=== PATIENT | female | born 1985 | race Caucasian/White ===

== ENCOUNTER 2020-06-11 17:01 | Inpatient (IN) | payer MEDICAID ==
[~2020-06-11] VITALS: Ht 162.6 cm; Wt 94.1 kg
[2020-06-11 19:00] LABS: COVID AG,FIA SOURCE NASOPHARYNGEAL
[2020-06-11 19:07] LABS: BASOPHILS % (AUTO) 0.2 % (0.0-2.0); EOSINOPHILS % (AUTO) 0 % (1.0-6.0); HEMATOCRIT 36.1 % (36-46); HEMOGLOBIN 12.1 g/dL (12.0-16.0); LYMPHOCYTES # (AUTO) 0.9 K/uL (1.0-4.8); LYMPHOCYTES % (AUTO) 7.2 % (22.0-44.0); MEAN CORPUSCULAR HEMOGLOBIN 29.3 pg (26.0-34.0); MEAN CORPUSCULAR HGB CONC 33.4 G/dL (31.0-37.0); MEAN CORPUSCULAR VOLUME 88 fL (80-100); MONOCYTES # (AUTO) 0.9 K/uL (0.1-1.0); NEUTROPHILS # (AUTO) 10.7 K/uL (1.8-7.7); PLATELET COUNT (AUTO) 223 K/uL (150-450); RED BLOOD CELL COUNT(AUTO) 4.11 MIL/uL (4.00-5.20); RED CELL DISTRIBUTION WIDTH 13.4 % (11.5-14.5)
[2020-06-11 19:12] LABS: NEUTROPHILS % (AUTO) 85.6 % (40.0-70.0)
[2020-06-11 19:28] LABS: ALANINE AMINOTRANSFERASE 82 U/L (12-78); ALBUMIN 3.7 g/dL (3.4-5.0); ALKALINE PHOSPHATASE 49 U/L (46-116); ANION GAP 11 mmol/L (8-16); ASPARTATE AMINOTRANSFERASE 113 U/L (15-37); CALCIUM, TOTAL 8.8 mg/dL (8.8-10.5); CARBON DIOXIDE 25 mmol/L (22-29); CHLORIDE 108 mmol/L (98-107); CREATININE 0.97 mg/dL (0.60-1.30); GLOMERULAR FILTR. RATE CALC > 60 mL/min (>60); GLUCOSE,RANDOM 107 mg/dL (70-110); POTASSIUM 3.3 mmol/L (3.5-5.1); SODIUM SERUM 144 mmol/L (136-145); TOTAL PROTEIN, SERUM 7.1 g/dL (6.4-8.2)
[2020-06-11 19:38] LABS: UREA NITROGEN, BLOOD 18 mg/dL (7-18)
[2020-06-11] MEDS ORDERED: LORazepam 2 MG/ML VIAL IM ONE (22:00)
[2020-06-11] MEDS ORDERED: HALOPERIDOL LACTATE 5 MG/ML VIAL IM ONE (22:00)
[2020-06-11] MEDS ORDERED: DiphenhydrAMINE HCL 50 MG/ML VIAL IM ONE (22:00)
[2020-06-12 00:35] VITALS: BP 137/88
[2020-06-12 08:09] VITALS: BP 119/68
[2020-06-12] MEDS ORDERED: DOCUSATE SODIUM 100 MG CAPSULE PO PRN (08:30)
[2020-06-12] MEDS ORDERED: OMEPRAZOLE 20 MG CAPSULE PO PRN (08:30)
[2020-06-12] MEDS ORDERED: BENZOCAINE/MENTHOL LOZENGE PO PRN (08:30)
[2020-06-12] MEDS ORDERED: LOPERAMIDE HCL 2 MG CAPSULE PO PRN (08:30)
[2020-06-12] MEDS ORDERED: ONDANSETRON HCL 4 MG TABLET PO PRN (08:30)
[2020-06-12] MEDS ORDERED: ACETAMINOPHEN 325 MG TABLET PO PRN (08:30)
[2020-06-12] MEDS ORDERED: PETROLATUM,WHITE 28 GM JELLY TP PRN (08:30)
[2020-06-12] MEDS ORDERED: MAG HYDROX/AL HYDROX/SIMETH ES 30 ML SUSPENSION UDCUP PO PRN (08:30)
[2020-06-12] MEDS ORDERED: IBUPROFEN 600 MG TABLET PO PRN (08:30)
[2020-06-12] MEDS ORDERED: MAGNESIUM HYDROXIDE SUSPENSION 30 ML UDCUP PO PRN (08:30)
[2020-06-12] MEDS ORDERED: CloNIDine HCL 0.1 MG TABLET PO PRN (08:30)
[2020-06-12] MEDS ORDERED: ALBUTEROL SULFATE HFA 90 MCG/PUFF 8 GM INHALER IH PRN (08:30)
[2020-06-12] MEDS ORDERED: BACITRACIN 28 GM OINTMENT TP PRN (08:30)
[2020-06-12] MEDS ORDERED: POTASSIUM CHLORIDE 20 MEQ ER TABLET PO ONE ×2 (08:30)
[2020-06-12 17:19] VITALS: BP 129/70
[2020-06-12] MEDS ORDERED: POTASSIUM CHLORIDE 10% 40 MEQ/30 ML LIQUID UDCUP PO ONE (18:15)
[2020-06-13] MEDS: ZOLPIDEM TARTRATE 10 MG TABLET PO PRN ×2 (00:46→20:21)
[2020-06-13] MEDS: LORazepam 2 MG TABLET PO PRN ×2 (00:46→19:06)
[2020-06-13] MEDS: OLANZapine 5 MG RAPDIS TABLET PO PRN ×2 (00:46→19:06)
[2020-06-13 03:49] VITALS: BP 120/76
[2020-06-13 08:01] LABS: BASOPHILS % (AUTO) 0.5 % (0.0-2.0); EOSINOPHILS % (AUTO) 1.2 % (1.0-6.0); HEMATOCRIT 38.6 % (36-46); HEMOGLOBIN 13.2 g/dL (12.0-16.0); LYMPHOCYTES % (AUTO) 39.5 % (22.0-44.0); MEAN CORPUSCULAR HEMOGLOBIN 30.3 pg (26.0-34.0); MEAN CORPUSCULAR HGB CONC 34.1 G/dL (31.0-37.0); MEAN CORPUSCULAR VOLUME 89 fL (80-100); MONOCYTES # (AUTO) 0.6 K/uL (0.1-1.0); MONOCYTES % (AUTO) 8.3 % (2.0-9.0); NEUTROPHILS # (AUTO) 3.9 K/uL (1.8-7.7); NEUTROPHILS % (AUTO) 50.5 % (40.0-70.0); PLATELET COUNT (AUTO) 239 K/uL (150-450); RED BLOOD CELL COUNT(AUTO) 4.35 MIL/uL (4.00-5.20); RED CELL DISTRIBUTION WIDTH 13.7 % (11.5-14.5)
[2020-06-13 08:14] LABS: ALANINE AMINOTRANSFERASE 71 U/L (12-78); ALBUMIN 3.5 g/dL (3.4-5.0); ALKALINE PHOSPHATASE 52 U/L (46-116); ANION GAP 12 mmol/L (8-16); ASPARTATE AMINOTRANSFERASE 80 U/L (15-37); BILIRUBIN,TOTAL 0.6 mg/dL (0.1-1.0); CALCIUM, TOTAL 9.3 mg/dL (8.8-10.5); CARBON DIOXIDE 27 mmol/L (22-29); CHLORIDE 109 mmol/L (98-107); CHOL/HDL RATIO 3.7 (3.9-5.7); CHOLESTEROL 174 mg/dL (131-200); CREATININE 0.61 mg/dL (0.60-1.30); GLOMERULAR FILTR. RATE CALC > 60 mL/min (>60); GLUCOSE,RANDOM 86 mg/dL (70-110); HDL CHOLESTEROL 47 mg/dL (40-60); LDL CHOL (CALC.) 113 mg/dL (0-130); PHOSPHORUS 4.6 mg/dL (2.5-4.9); POTASSIUM 3.6 mmol/L (3.5-5.1); SODIUM SERUM 148 mmol/L (136-145); TOTAL PROTEIN, SERUM 7.4 g/dL (6.4-8.2); TRIGLYCERIDES 69 mg/dL (15-150); UREA NITROGEN, BLOOD 19 mg/dL (7-18)
[2020-06-13] MEDS ORDERED: POTASSIUM CHLORIDE 20 MEQ ER TABLET PO ONE (08:15)
[2020-06-13 08:17] VITALS: BP 102/63
[2020-06-13] MEDS: CEPHALEXIN MONOHYDRATE 500 MG CAPSULE PO SCH ×4 (08:30→20:21)
[2020-06-13] MEDS: TERBINAFINE HCL 1% 30 GM CREAM TP SCH ×2 (08:31→16:41)
[2020-06-13] MEDS: MAGNESIUM SULFATE 454 GM BOX TP SCH ×2 (08:41→10:00)
[2020-06-13] MEDS ORDERED: MAGNESIUM SULFATE 454 GM BOX TP SCH (09:00)
[2020-06-13 16:10] VITALS: BP 118/66
[2020-06-13] MEDS: OLANZapine 10 MG TABLET PO SCH (20:20)
[2020-06-14 00:08] VITALS: BP 114/75
[2020-06-14] MEDS: CEPHALEXIN MONOHYDRATE 500 MG CAPSULE PO SCH ×4 (08:01→21:00)
[2020-06-14 08:05] VITALS: BP 141/96
[2020-06-14] MEDS: TERBINAFINE HCL 1% 30 GM CREAM TP SCH ×2 (09:00→16:03)
[2020-06-14] MEDS: MAGNESIUM SULFATE 454 GM BOX TP SCH (10:00)
[2020-06-14] MEDS: LORazepam 2 MG TABLET PO PRN (15:27)
[2020-06-14 16:15] VITALS: BP 146/94
[2020-06-14] MEDS: OLANZapine 10 MG TABLET PO SCH (21:00)
[2020-06-15 00:26] VITALS: BP_SYST 128; BP_SYST 88; BP_DIAS 18; BP_DIAS 78
[2020-06-15] MEDS: CEPHALEXIN MONOHYDRATE 500 MG CAPSULE PO SCH ×4 (08:25→20:35)
[2020-06-15 08:39] VITALS: BP 132/78
[2020-06-15] MEDS: MAGNESIUM SULFATE 454 GM BOX TP SCH (11:28)
[2020-06-15] MEDS: TERBINAFINE HCL 1% 30 GM CREAM TP SCH ×2 (11:28→16:16)
[2020-06-15] MEDS: OLANZapine 5 MG RAPDIS TABLET PO PRN (17:54)
[2020-06-15 19:24] VITALS: BP 140/76
[2020-06-15] MEDS: OLANZapine 10 MG TABLET PO SCH (20:35)
[2020-06-16] MEDS: ZOLPIDEM TARTRATE 10 MG TABLET PO PRN ×2 (01:41→22:42)
[2020-06-16 01:46] VITALS: BP 121/70
[2020-06-16 08:05] VITALS: BP 121/69
[2020-06-16] MEDS: MAGNESIUM SULFATE 454 GM BOX TP SCH (08:53)
[2020-06-16] MEDS: TERBINAFINE HCL 1% 30 GM CREAM TP SCH ×2 (08:53→15:51)
[2020-06-16] MEDS: CEPHALEXIN MONOHYDRATE 500 MG CAPSULE PO SCH ×4 (08:54→21:05)
[2020-06-16 16:06] VITALS: BP 122/84
[2020-06-16] MEDS: OLANZapine 5 MG RAPDIS TABLET PO PRN (18:04)
[2020-06-16] MEDS: LORazepam 2 MG TABLET PO PRN (18:04)
[2020-06-16] MEDS: OLANZapine 10 MG TABLET PO SCH (21:05)
[2020-06-17 00:34] VITALS: BP 117/82
[2020-06-17] MEDS: LORazepam 2 MG TABLET PO PRN (00:47)
[2020-06-17] MEDS: OLANZapine 5 MG RAPDIS TABLET PO PRN (00:48)
[2020-06-17 08:16] VITALS: BP 122/86
[2020-06-17 08:17] LABS: BAND NEUTROPHILS % (MANUAL) 0 % (0-5)
[2020-06-17] MEDS: TERBINAFINE HCL 1% 30 GM CREAM TP SCH ×2 (08:19→16:30)
[2020-06-17] MEDS: CEPHALEXIN MONOHYDRATE 500 MG CAPSULE PO SCH ×4 (08:19→20:19)
[2020-06-17 08:31] LABS: HEMATOCRIT 40.3 % (36-46); HEMOGLOBIN 13.3 g/dL (12.0-16.0); MEAN CORPUSCULAR HEMOGLOBIN 29.6 pg (26.0-34.0); MEAN CORPUSCULAR HGB CONC 32.9 G/dL (31.0-37.0); MEAN CORPUSCULAR VOLUME 90 fL (80-100); PLATELET COUNT (AUTO) 244 K/uL (150-450); RED BLOOD CELL COUNT(AUTO) 4.48 MIL/uL (4.00-5.20); RED CELL DISTRIBUTION WIDTH 13.6 % (11.5-14.5)
[2020-06-17 08:45] LABS: ANION GAP 11 mmol/L (8-16); CARBON DIOXIDE 26 mmol/L (22-29); CHLORIDE 106 mmol/L (98-107); CREATININE 0.68 mg/dL (0.60-1.30); GLUCOSE,RANDOM 86 mg/dL (70-110); SODIUM SERUM 143 mmol/L (136-145); UREA NITROGEN, BLOOD 11 mg/dL (7-18)
[2020-06-17 08:46] LABS: CALCIUM, TOTAL 9.1 mg/dL (8.8-10.5); GLOMERULAR FILTR. RATE CALC > 60 mL/min (>60); PHOSPHORUS 3.8 mg/dL (2.5-4.9)
[2020-06-17] MEDS: MAGNESIUM SULFATE 454 GM BOX TP SCH (09:03)
[2020-06-17 12:21] LABS: EOSINOPHILS % (MANUAL) 2 % (1-6); LYMPHOCYTES % (MANUAL) 40 % (22-44); MONOCYTES % (MANUAL) 8 % (2-9); REACTIVE LYMPHOCYTES 3 % (0-0); SEGMENTED NEUTROPHILS % 47 % (40-70)
[2020-06-17 16:24] VITALS: BP 148/86
[2020-06-17] MEDS: OLANZapine 10 MG TABLET PO SCH (20:19)
[2020-06-18 00:37] VITALS: BP 128/79
[2020-06-18] MEDS: ZOLPIDEM TARTRATE 10 MG TABLET PO PRN ×2 (01:48→20:34)
[2020-06-18] MEDS: LORazepam 2 MG TABLET PO PRN ×2 (01:48→16:43)
[2020-06-18 08:19] VITALS: BP 153/91
[2020-06-18] MEDS: CEPHALEXIN MONOHYDRATE 500 MG CAPSULE PO SCH ×4 (08:28→20:10)
[2020-06-18] MEDS: TERBINAFINE HCL 1% 30 GM CREAM TP SCH ×2 (08:28→16:44)
[2020-06-18] MEDS: MAGNESIUM SULFATE 454 GM BOX TP SCH (10:00)
[2020-06-18 16:06] VITALS: BP 130/79
[2020-06-18] MEDS: OLANZapine 5 MG RAPDIS TABLET PO PRN (16:43)
[2020-06-18] MEDS: OLANZapine 10 MG TABLET PO SCH (20:10)
[2020-06-19 00:45] VITALS: BP 110/77
[2020-06-19 08:04] VITALS: BP 134/89
[2020-06-19] MEDS: TERBINAFINE HCL 1% 30 GM CREAM TP SCH ×2 (08:41→16:43)
[2020-06-19] MEDS: CEPHALEXIN MONOHYDRATE 500 MG CAPSULE PO SCH ×4 (08:43→20:19)
[2020-06-19] MEDS: MAGNESIUM SULFATE 454 GM BOX TP SCH (09:56)
[2020-06-19] MEDS: MULTIVITAMINS, THERAPEUTIC TABLET PO SCH (10:01)
[2020-06-19 16:04] VITALS: BP 133/62
[2020-06-19] MEDS: LORazepam 2 MG TABLET PO PRN (19:02)
[2020-06-19] MEDS: OLANZapine 7.5 MG TABLET PO SCH (20:19)
[2020-06-19] MEDS: ZOLPIDEM TARTRATE 10 MG TABLET PO PRN (23:50)
[2020-06-19 23:53] VITALS: BP 128/80
[2020-06-20 08:03] VITALS: BP 129/89
[2020-06-20] MEDS: LORazepam 2 MG TABLET PO PRN (08:12)
[2020-06-20] MEDS: MULTIVITAMINS, THERAPEUTIC TABLET PO SCH (08:12)
[2020-06-20] MEDS: TERBINAFINE HCL 1% 30 GM CREAM TP SCH ×2 (08:21→16:37)
[2020-06-20] MEDS: MAGNESIUM SULFATE 454 GM BOX TP SCH (10:00)
[2020-06-20 17:34] VITALS: BP 140/95
[2020-06-20] MEDS: OLANZapine 7.5 MG TABLET PO SCH (20:21)
[2020-06-20] MEDS: ZOLPIDEM TARTRATE 10 MG TABLET PO PRN (22:37)
[2020-06-21 00:40] VITALS: BP 126/74
[2020-06-21 08:02] VITALS: BP 114/68
[2020-06-21] MEDS: MULTIVITAMINS, THERAPEUTIC TABLET PO SCH (08:53)
[2020-06-21] MEDS: TERBINAFINE HCL 1% 30 GM CREAM TP SCH (09:54)
[2020-06-21] MEDS: MAGNESIUM SULFATE 454 GM BOX TP SCH (10:00)
[2020-06-21] MEDS ORDERED: OLAN7.5T2 PO (15:40)
== END 2020-06-21 16:30 | disposition home or self-care (01) | DRG 750 ==
LOC: EMS 17:02 → B3A 20:37
PROVIDERS: ADMIT Psychiatry & Neurology Psychiatry; ATTEND Psychiatry & Neurology Psychiatry
DX: F25.9 Schizoaffective disorder, unspecified (principal); F31.9 Bipolar disorder, unspecified; Z20.828 Contact with and (suspected) exposure to other viral communicable diseases; F41.9 Anxiety disorder, unspecified; E87.6 Hypokalemia; G47.00 Insomnia, unspecified; K59.00 Constipation, unspecified; F19.10 Other psychoactive substance abuse, uncomplicated; Z72.0 Tobacco use; Z88.2 Allergy status to sulfonamides; Z88.8 Allergy status to other drugs, medicaments and biological substances
CPT/HCPCS: 80074; 83735; 84100; 85007; 87426; G0480; J1200; J1630; J2060

== ENCOUNTER 2020-06-23 13:55 | Inpatient (IN) | payer MEDICAID ==
[~2020-06-23] VITALS: Ht 162.6 cm; Wt 95.4 kg
[~2020-06-23 13:55] MED LIST: OLAN7.5T2 PO
[2020-06-23 16:52] LABS: BASOPHILS % (AUTO) 0.3 % (0.0-2.0); EOSINOPHILS % (AUTO) 0 % (1.0-6.0); HEMATOCRIT 41.5 % (36-46); HEMOGLOBIN 14.2 g/dL (12.0-16.0); LYMPHOCYTES # (AUTO) 2.4 K/uL (1.0-4.8); LYMPHOCYTES % (AUTO) 19.6 % (22.0-44.0); MEAN CORPUSCULAR HEMOGLOBIN 29.7 pg (26.0-34.0); MEAN CORPUSCULAR HGB CONC 34.2 G/dL (31.0-37.0); MEAN CORPUSCULAR VOLUME 87 fL (80-100); MONOCYTES # (AUTO) 0.8 K/uL (0.1-1.0); MONOCYTES % (AUTO) 6.7 % (2.0-9.0); NEUTROPHILS # (AUTO) 8.9 K/uL (1.8-7.7); NEUTROPHILS % (AUTO) 73.4 % (40.0-70.0); PLATELET COUNT (AUTO) 279 K/uL (150-450); RED BLOOD CELL COUNT(AUTO) 4.78 MIL/uL (4.00-5.20); RED CELL DISTRIBUTION WIDTH 13.4 % (11.5-14.5)
[2020-06-23 17:04] LABS: COVID AG,FIA SOURCE NASOPHARYNGEAL
[2020-06-23 17:06] LABS: ANION GAP 14 mmol/L (8-16); CALCIUM, TOTAL 9.4 mg/dL (8.8-10.5); CARBON DIOXIDE 24 mmol/L (22-29); CHLORIDE 101 mmol/L (98-107); CREATININE 0.76 mg/dL (0.60-1.30); GLOMERULAR FILTR. RATE CALC > 60 mL/min (>60); GLUCOSE,RANDOM 98 mg/dL (70-110); POTASSIUM 3.3 mmol/L (3.5-5.1); SODIUM SERUM 139 mmol/L (136-145); UREA NITROGEN, BLOOD 15 mg/dL (7-18)
[2020-06-23 17:10] LABS: ALANINE AMINOTRANSFERASE 67 U/L (12-78); ALBUMIN 4.3 g/dL (3.4-5.0); ALKALINE PHOSPHATASE 54 U/L (46-116); ASPARTATE AMINOTRANSFERASE 72 U/L (15-37); BILIRUBIN,TOTAL 0.9 mg/dL (0.1-1.0); TOTAL PROTEIN, SERUM 8.1 g/dL (6.4-8.2)
[2020-06-23 17:32] LABS: APPEARANCE,URINE CLEAR (CLEAR); GLUCOSE, URINE (UA) NEGATIVE (NEGATIVE); KETONES,URINE 40 mg/dL (NEGATIVE); LEUKOCYTE ESTERASE ,URINE NEGATIVE (NEGATIVE); NITRATE,URINE NEGATIVE (NEGATIVE); OCCULT BLOOD,URINE NEGATIVE (NEGATIVE); PROTEIN,URINE POS 1+ (NEGATIVE); UROBILINOGEN,URINE 0.2 mg/dL (<=1.0)
[2020-06-23 17:36] LABS: AMPHET/METH SCREEN,URINE NEGATIVE (NEGATIVE); BARBITURATE SCREEN, URINE NEGATIVE (NEGATIVE); BENZODIAZEPINES SCREEN,URINE NEGATIVE (NEGATIVE); CANNABINOID SCREEN,URINE NEGATIVE (NEGATIVE); COCAINE SCREEN,URINE NEGATIVE (NEGATIVE); METHADONE SCREEN, URINE NEGATIVE (NEGATIVE); OPIATE SCREEN,URINE NEGATIVE (NEGATIVE)
[2020-06-23 17:44] LABS: PHENCYCLIDINE SCREEN,URINE NEGATIVE (NEGATIVE)
[2020-06-23 17:45] LABS: BILIRUBIN,URINE PRELIM. POSITIVE (NEGATIVE)
[2020-06-23 18:02] LABS: BACTERIA,URINE Few /HPF (None Seen); RBC,URINE 0-2 /HPF (0-2); SQUAMOUS EPITHELIAL CELL,UR Rare /LPF (None Seen); WBC,URINE 0-2 /HPF (0-5)
[2020-06-23] MEDS ORDERED: POTASSIUM CHLORIDE 20 MEQ ER TABLET PO ONE (18:45)
[2020-06-23] MEDS ORDERED: HALOPERIDOL 5 MG TABLET PO ONE (19:00)
[2020-06-23] MEDS ORDERED: DiphenhydrAMINE HCL 50 MG CAPSULE PO ONE (19:00)
[2020-06-23 19:23] LABS: HCG,QUANTITATIVE 1 mIU/mL (0-6)
[2020-06-23] MEDS ORDERED: ZOLPIDEM TARTRATE 10 MG TABLET PO PRN (20:15)
[2020-06-23] MEDS ORDERED: HALOPERIDOL 5 MG TABLET PO PRN (20:15)
[2020-06-24 05:43] LABS: CHOL/HDL RATIO 3.3 (3.9-5.7); CHOLESTEROL 203 mg/dL (131-200); HDL CHOLESTEROL 61 mg/dL (40-60); LDL CHOL (CALC.) 130 mg/dL (0-130); TRIGLYCERIDES 58 mg/dL (15-150)
[2020-06-24] MEDS: LORazepam 2 MG TABLET PO PRN ×2 (08:48→21:54)
[2020-06-24 15:11] VITALS: BP 147/64
[2020-06-24 15:41] VITALS: BP 147/64
[2020-06-24 16:55] VITALS: BP 147/64
[2020-06-24] MEDS: POTASSIUM CHLORIDE 20 MEQ ER TABLET PO ONE ×2 (17:00→17:23)
[2020-06-24 17:04] VITALS: BP 147/64
[2020-06-25] MEDS ORDERED: CloNIDine HCL 0.1 MG TABLET PO PRN (07:30)
[2020-06-25] MEDS ORDERED: MAG HYDROX/AL HYDROX/SIMETH ES 30 ML SUSPENSION UDCUP PO PRN (07:30)
[2020-06-25] MEDS ORDERED: LOPERAMIDE HCL 2 MG CAPSULE PO PRN (07:30)
[2020-06-25] MEDS ORDERED: DOCUSATE SODIUM 100 MG CAPSULE PO PRN (07:30)
[2020-06-25] MEDS ORDERED: ACETAMINOPHEN 325 MG TABLET PO PRN (07:30)
[2020-06-25] MEDS ORDERED: ALBUTEROL SULFATE HFA 90 MCG/PUFF 8 GM INHALER IH PRN (07:30)
[2020-06-25] MEDS ORDERED: IBUPROFEN 600 MG TABLET PO PRN (07:30)
[2020-06-25] MEDS ORDERED: BENZOCAINE/MENTHOL LOZENGE PO PRN (07:30)
[2020-06-25] MEDS ORDERED: BACITRACIN 28 GM OINTMENT TP PRN (07:30)
[2020-06-25] MEDS ORDERED: ONDANSETRON HCL 4 MG TABLET PO PRN (07:30)
[2020-06-25] MEDS ORDERED: PETROLATUM,WHITE 28 GM JELLY TP PRN (07:30)
[2020-06-25] MEDS ORDERED: MAGNESIUM HYDROXIDE SUSPENSION 30 ML UDCUP PO PRN (07:30)
[2020-06-25] MEDS ORDERED: OMEPRAZOLE 20 MG CAPSULE PO PRN (07:30)
[2020-06-25 08:00] VITALS: BP 113/17
[2020-06-25 16:19] VITALS: BP 111/67
[2020-06-26 02:11] VITALS: BP 152/70
[2020-06-26 06:55] LABS: POTASSIUM 3.6 mmol/L (3.5-5.1); THYROID STIMULATING HORMONE 1.55 uIU/mL (0.36-3.74)
[2020-06-26 08:49] VITALS: BP 130/71
[2020-06-26] MEDS: BusPIRone HCL 10 MG TABLET PO SCH ×2 (09:23→16:05)
[2020-06-26] MEDS: QUEtiapine FUMARATE 200 MG TABLET PO SCH ×2 (09:23→16:05)
[2020-06-26 16:58] VITALS: BP 135/94
[2020-06-26] MEDS: LORazepam 2 MG TABLET PO PRN (22:03)
[2020-06-27 09:00] VITALS: BP 124/56
[2020-06-27] MEDS: MUPIROCIN CALCIUM 2% 22 GM OINTMENT NASAL SCH ×2 (09:00→16:22)
[2020-06-27] MEDS: QUEtiapine FUMARATE 200 MG TABLET PO SCH ×2 (10:40→16:22)
[2020-06-27] MEDS: BusPIRone HCL 10 MG TABLET PO SCH ×2 (10:40→16:22)
[2020-06-27 17:34] VITALS: BP 114/85
[2020-06-28 01:09] VITALS: BP 127/68
[2020-06-28] MEDS: QUEtiapine FUMARATE 200 MG TABLET PO SCH ×2 (09:07→16:15)
[2020-06-28] MEDS: BusPIRone HCL 10 MG TABLET PO SCH ×2 (09:07→16:15)
[2020-06-28] MEDS: MUPIROCIN CALCIUM 2% 22 GM OINTMENT NASAL SCH ×2 (09:08→16:15)
[2020-06-28 09:33] VITALS: BP 119/65
[2020-06-28 17:13] VITALS: BP 138/80
[2020-06-29 00:21] VITALS: BP 121/74
[2020-06-29 08:31] VITALS: BP 121/81
[2020-06-29] MEDS: QUEtiapine FUMARATE 200 MG TABLET PO SCH ×2 (08:57→16:13)
[2020-06-29] MEDS: BusPIRone HCL 10 MG TABLET PO SCH ×2 (08:57→16:13)
[2020-06-29] MEDS: MUPIROCIN CALCIUM 2% 22 GM OINTMENT NASAL SCH ×2 (08:57→16:13)
[2020-06-29 16:54] VITALS: BP 122/68
[2020-06-30 04:00] VITALS: BP 147/87
[2020-06-30] MEDS: BusPIRone HCL 10 MG TABLET PO SCH ×2 (08:39→16:38)
[2020-06-30] MEDS: MUPIROCIN CALCIUM 2% 22 GM OINTMENT NASAL SCH ×2 (08:39→16:39)
[2020-06-30] MEDS: QUEtiapine FUMARATE 200 MG TABLET PO SCH ×2 (08:39→16:38)
[2020-06-30 09:08] VITALS: BP 112/76
[2020-06-30 16:00] VITALS: BP 150/75
[2020-07-01 08:00] VITALS: BP 115/61
[2020-07-01] MEDS: BusPIRone HCL 10 MG TABLET PO SCH (09:46)
[2020-07-01] MEDS: MUPIROCIN CALCIUM 2% 22 GM OINTMENT NASAL SCH (09:47)
[2020-07-01] MEDS: QUEtiapine FUMARATE 200 MG TABLET PO SCH (09:47)
[2020-07-01] MEDS ORDERED: BUSP10TA23 PO (14:36)
[2020-07-01] MEDS ORDERED: QUET200T PO (14:37)
== END 2020-07-01 15:45 | disposition home or self-care (01) | DRG 750 ==
LOC: EMS 14:31 → UNDOADMIN 16:55 → 5S 16:55 → 3EC 06-24 14:46 → 3EI 06-25 17:25
PROVIDERS: ADMIT Psychiatry & Neurology Psychiatry; ATTEND Psychiatry & Neurology Psychiatry
DX: F20.0 Paranoid schizophrenia (principal); F17.210 Nicotine dependence, cigarettes, uncomplicated; F31.9 Bipolar disorder, unspecified; Z20.828 Contact with and (suspected) exposure to other viral communicable diseases; K59.00 Constipation, unspecified; E87.6 Hypokalemia; G47.00 Insomnia, unspecified; Z88.2 Allergy status to sulfonamides; Z79.899 Other long term (current) drug therapy
CPT/HCPCS: 84132; 84295; 84443; 87081; 87147; 87426; G0480

== ENCOUNTER 2020-07-14 10:40 | Inpatient (IN) | payer MEDICAID ==
[~2020-07-14] VITALS: Ht 167.6 cm; Wt 95.7 kg
[~2020-07-14 10:40] MED LIST changes: +BUSP10TA23 PO; -OLAN7.5T2 PO; +QUET200T PO
[2020-07-14 11:31] LABS: BASOPHILS % (AUTO) 0.2 % (0.0-2.0); EOSINOPHILS % (AUTO) 0 % (1.0-6.0); HEMATOCRIT 38.9 % (36-46); HEMOGLOBIN 12.8 g/dL (12.0-16.0); LYMPHOCYTES # (AUTO) 1.3 K/uL (1.0-4.8); LYMPHOCYTES % (AUTO) 9.3 % (22.0-44.0); MEAN CORPUSCULAR HEMOGLOBIN 29.2 pg (26.0-34.0); MEAN CORPUSCULAR HGB CONC 32.9 G/dL (31.0-37.0); MEAN CORPUSCULAR VOLUME 89 fL (80-100); MONOCYTES # (AUTO) 0.8 K/uL (0.1-1.0); MONOCYTES % (AUTO) 6.3 % (2.0-9.0); NEUTROPHILS # (AUTO) 11.3 K/uL (1.8-7.7); NEUTROPHILS % (AUTO) 84.2 % (40.0-70.0); PLATELET COUNT (AUTO) 235 K/uL (150-450); RED BLOOD CELL COUNT(AUTO) 4.38 MIL/uL (4.00-5.20); RED CELL DISTRIBUTION WIDTH 13.3 % (11.5-14.5)
[2020-07-14 11:45] LABS: SALICYLATE 0.4 mg/dL (2.8-20.0)
[2020-07-14 11:47] LABS: ANION GAP 14 mmol/L (8-16); CALCIUM, TOTAL 8.9 mg/dL (8.8-10.5); CARBON DIOXIDE 22 mmol/L (22-29); CHLORIDE 104 mmol/L (98-107); GLOMERULAR FILTR. RATE CALC 57 mL/min (>60); GLUCOSE,RANDOM 104 mg/dL (70-110); POTASSIUM 3.5 mmol/L (3.5-5.1); SODIUM SERUM 140 mmol/L (136-145); UREA NITROGEN, BLOOD 27 mg/dL (7-18)
[2020-07-14 11:49] LABS: COVID AG,FIA SOURCE NASOPHARYNGEAL
[2020-07-14 12:00] LABS: INR 1.2 (0.9-1.1); PROTHROMBIN TIME 12.8 SEC (9.4-11.6)
[2020-07-14 12:11] LABS: ALANINE AMINOTRANSFERASE 53 U/L (12-78); ALKALINE PHOSPHATASE 56 U/L (46-116); ASPARTATE AMINOTRANSFERASE 72 U/L (15-37); HCG,QUANTITATIVE 1 mIU/mL (0-6); TOTAL PROTEIN, SERUM 7.7 g/dL (6.4-8.2)
[2020-07-14 12:12] LABS: ACETAMINOPHEN < 2 mcg/mL (10-30); CREATINE KINASE, TOTAL ONLY 1340 U/L (26-192)
[2020-07-14 15:42] LABS: APPEARANCE,URINE CLEAR (CLEAR); BILIRUBIN,URINE NEGATIVE (NEGATIVE); GLUCOSE, URINE (UA) NEGATIVE (NEGATIVE); KETONES,URINE NEGATIVE (NEGATIVE); LEUKOCYTE ESTERASE ,URINE TRACE (NEGATIVE); NITRATE,URINE NEGATIVE (NEGATIVE); OCCULT BLOOD,URINE LARGE (NEGATIVE); PROTEIN,URINE NEGATIVE (NEGATIVE); UROBILINOGEN,URINE 0.2 mg/dL (<=1.0)
[2020-07-14 15:58] LABS: BACTERIA,URINE None Seen /HPF (None Seen); RBC,URINE 0-2 /HPF (0-2); SQUAMOUS EPITHELIAL CELL,UR None Seen /LPF (None Seen); WBC,URINE 0-2 /HPF (0-5)
[2020-07-14 16:07] LABS: AMPHET/METH SCREEN,URINE NEGATIVE (NEGATIVE); BARBITURATE SCREEN, URINE NEGATIVE (NEGATIVE); BENZODIAZEPINES SCREEN,URINE NEGATIVE (NEGATIVE); CANNABINOID SCREEN,URINE NEGATIVE (NEGATIVE); COCAINE SCREEN,URINE NEGATIVE (NEGATIVE); METHADONE SCREEN, URINE NEGATIVE (NEGATIVE); OPIATE SCREEN,URINE NEGATIVE (NEGATIVE)
[2020-07-14 16:10] LABS: PHENCYCLIDINE SCREEN,URINE NEGATIVE (NEGATIVE)
[2020-07-14] MEDS ORDERED: BENZTROPINE MESYLATE 2 MG TABLET PO ONE (16:15)
[2020-07-14] MEDS ORDERED: LORazepam 2 MG TABLET PO ONE (16:15)
[2020-07-14] MEDS ORDERED: HALOPERIDOL 5 MG TABLET PO ONE (16:15)
[2020-07-14] MEDS ORDERED: ACETAMINOPHEN 325 MG TABLET PO PRN (16:15)
[2020-07-14] MEDS ORDERED: BusPIRone HCL 10 MG TABLET PO ONE (17:00)
[2020-07-14] MEDS ORDERED: QUEtiapine FUMARATE 100 MG TABLET PO ONE (17:00)
[2020-07-14 17:23] LABS: CHOLESTEROL 178 mg/dL (131-200); HDL CHOLESTEROL 45 mg/dL (40-60); LDL CHOL (CALC.) 112 mg/dL (0-130); TRIGLYCERIDES 104 mg/dL (15-150)
[2020-07-14] MEDS ORDERED: ZOLPIDEM TARTRATE 10 MG TABLET PO PRN (20:15)
[2020-07-14 20:21] VITALS: BP 121/69
[2020-07-15 01:19] VITALS: BP 120/72
[2020-07-15] MEDS: BusPIRone HCL 10 MG TABLET PO SCH ×2 (08:19→16:33)
[2020-07-15] MEDS: QUEtiapine FUMARATE 200 MG TABLET PO SCH ×2 (08:20→16:32)
[2020-07-15 08:26] VITALS: BP 122/79
[2020-07-15] MEDS ORDERED: IBUPROFEN 600 MG TABLET PO PRN (08:30)
[2020-07-15] MEDS ORDERED: DOCUSATE SODIUM 100 MG CAPSULE PO PRN (08:30)
[2020-07-15] MEDS ORDERED: ONDANSETRON HCL 4 MG TABLET PO PRN (08:30)
[2020-07-15] MEDS ORDERED: PETROLATUM,WHITE 28 GM JELLY TP PRN (08:30)
[2020-07-15] MEDS ORDERED: BACITRACIN 28 GM OINTMENT TP PRN (08:30)
[2020-07-15] MEDS ORDERED: MAG HYDROX/AL HYDROX/SIMETH ES 30 ML SUSPENSION UDCUP PO PRN (08:30)
[2020-07-15] MEDS ORDERED: MAGNESIUM HYDROXIDE SUSPENSION 30 ML UDCUP PO PRN (08:30)
[2020-07-15] MEDS ORDERED: ACETAMINOPHEN 325 MG TABLET PO PRN (08:30)
[2020-07-15] MEDS ORDERED: OMEPRAZOLE 20 MG CAPSULE PO PRN (08:30)
[2020-07-15] MEDS ORDERED: LOPERAMIDE HCL 2 MG CAPSULE PO PRN (08:30)
[2020-07-15] MEDS ORDERED: CloNIDine HCL 0.1 MG TABLET PO PRN (08:30)
[2020-07-15] MEDS ORDERED: BENZOCAINE/MENTHOL LOZENGE PO PRN (08:30)
[2020-07-15] MEDS ORDERED: ALBUTEROL SULFATE HFA 90 MCG/PUFF 8 GM INHALER IH PRN (08:30)
[2020-07-15] MEDS: LORazepam 2 MG TABLET PO PRN ×2 (08:53→20:22)
[2020-07-15 16:13] VITALS: BP 110/66
[2020-07-16 01:16] VITALS: BP 114/69
[2020-07-16] MEDS: BusPIRone HCL 10 MG TABLET PO SCH ×2 (08:18→16:21)
[2020-07-16] MEDS: QUEtiapine FUMARATE 200 MG TABLET PO SCH ×2 (08:19→16:20)
[2020-07-16 08:26] VITALS: BP 121/74
[2020-07-16] MEDS: LORazepam 2 MG TABLET PO PRN (08:53)
[2020-07-16 16:25] VITALS: BP 124/79
[2020-07-17 01:52] VITALS: BP 112/75
[2020-07-17] MEDS: QUEtiapine FUMARATE 200 MG TABLET PO SCH ×2 (08:20→16:39)
[2020-07-17] MEDS: BusPIRone HCL 10 MG TABLET PO SCH ×2 (08:20→16:39)
[2020-07-17 08:35] VITALS: BP 139/85
[2020-07-17 16:05] VITALS: BP 132/92
[2020-07-18 01:39] VITALS: BP 122/77
[2020-07-18 08:15] VITALS: BP 122/68
[2020-07-18] MEDS: QUEtiapine FUMARATE 200 MG TABLET PO SCH ×2 (09:03→16:11)
[2020-07-18] MEDS: BusPIRone HCL 10 MG TABLET PO SCH ×2 (09:03→16:11)
[2020-07-18 16:12] VITALS: BP 125/71
[2020-07-19 00:44] VITALS: BP 116/66
[2020-07-19] MEDS: BusPIRone HCL 10 MG TABLET PO SCH ×2 (08:02→16:59)
[2020-07-19] MEDS: QUEtiapine FUMARATE 300 MG TABLET PO SCH ×2 (08:02→16:59)
[2020-07-19 08:19] VITALS: BP 135/63
[2020-07-19 16:14] VITALS: BP 128/71
[2020-07-20] MEDS: LORazepam 2 MG TABLET PO PRN (03:57)
[2020-07-20 06:10] VITALS: BP 118/69
[2020-07-20] MEDS: BusPIRone HCL 10 MG TABLET PO SCH ×2 (07:57→16:22)
[2020-07-20] MEDS: QUEtiapine FUMARATE 300 MG TABLET PO SCH ×2 (07:57→16:22)
[2020-07-20 08:16] LABS: COVID AG,FIA SOURCE NASOPHARYNGEAL
[2020-07-20 08:18] VITALS: BP 115/74
[2020-07-20 16:14] VITALS: BP 101/73
[2020-07-21 01:40] VITALS: BP 106/77
[2020-07-21] MEDS: QUEtiapine FUMARATE 300 MG TABLET PO SCH ×2 (08:10→16:52)
[2020-07-21] MEDS: BusPIRone HCL 10 MG TABLET PO SCH ×2 (08:10→16:52)
[2020-07-21 08:25] VITALS: BP 129/117
[2020-07-21] MEDS: LORazepam 2 MG TABLET PO PRN (08:28)
[2020-07-21] MEDS: HALOPERIDOL 5 MG TABLET PO PRN (08:52)
[2020-07-21 10:00] VITALS: BP 118/88
[2020-07-21 16:08] VITALS: BP 121/72
[2020-07-22] MEDS: BusPIRone HCL 10 MG TABLET PO SCH ×2 (08:18→16:16)
[2020-07-22] MEDS: QUEtiapine FUMARATE 300 MG TABLET PO SCH ×2 (08:18→16:16)
[2020-07-22] MEDS: LORazepam 2 MG TABLET PO PRN (08:18)
[2020-07-22 08:20] VITALS: BP 120/74
[2020-07-22] MEDS: HALOPERIDOL 5 MG TABLET PO PRN (08:23)
[2020-07-22 16:17] VITALS: BP 130/73
[2020-07-23 06:56] VITALS: BP 125/65
[2020-07-23] MEDS: BusPIRone HCL 10 MG TABLET PO SCH ×2 (08:09→16:51)
[2020-07-23] MEDS: QUEtiapine FUMARATE 300 MG TABLET PO SCH ×2 (08:09→16:50)
[2020-07-23 08:33] VITALS: BP 118/70
[2020-07-23] MEDS: LORazepam 2 MG TABLET PO PRN (11:40)
[2020-07-23 16:22] VITALS: BP 103/64
[2020-07-24 03:30] VITALS: BP 112/66
[2020-07-24] MEDS: QUEtiapine FUMARATE 300 MG TABLET PO SCH ×2 (08:07→16:44)
[2020-07-24] MEDS: BusPIRone HCL 10 MG TABLET PO SCH ×2 (08:07→16:44)
[2020-07-24 08:50] VITALS: BP 116/88
[2020-07-24] MEDS: LORazepam 2 MG TABLET PO PRN (09:08)
[2020-07-24 16:07] VITALS: BP 107/69
[2020-07-25 07:03] VITALS: BP 125/70
[2020-07-25] MEDS: BusPIRone HCL 10 MG TABLET PO SCH ×2 (08:12→16:24)
[2020-07-25] MEDS: QUEtiapine FUMARATE 300 MG TABLET PO SCH ×2 (08:12→16:24)
[2020-07-25 08:34] VITALS: BP 148/80
[2020-07-25] MEDS: LORazepam 2 MG TABLET PO PRN (09:02)
[2020-07-25 10:00] VITALS: BP 130/72
[2020-07-25 16:31] VITALS: BP 140/80
[2020-07-26 00:51] VITALS: BP 120/74
[2020-07-26] MEDS: QUEtiapine FUMARATE 300 MG TABLET PO SCH ×2 (09:12→16:16)
[2020-07-26] MEDS: HALOPERIDOL 5 MG TABLET PO PRN (09:12)
[2020-07-26] MEDS: BusPIRone HCL 10 MG TABLET PO SCH ×2 (09:12→16:16)
[2020-07-26 09:25] VITALS: BP 112/73
[2020-07-26 16:15] VITALS: BP 126/75
[2020-07-27 00:42] VITALS: BP 120/71
[2020-07-27 08:17] VITALS: BP 121/57
[2020-07-27] MEDS: BusPIRone HCL 10 MG TABLET PO SCH ×2 (08:25→16:12)
[2020-07-27] MEDS: QUEtiapine FUMARATE 300 MG TABLET PO SCH ×2 (08:25→16:12)
[2020-07-27] MEDS: HALOPERIDOL 5 MG TABLET PO PRN (08:26)
[2020-07-27] MEDS: LORazepam 2 MG TABLET PO PRN (16:15)
[2020-07-27 16:48] VITALS: BP 116/77
[2020-07-28 01:14] VITALS: BP 114/73
[2020-07-28] MEDS: BusPIRone HCL 10 MG TABLET PO SCH ×2 (08:22→16:55)
[2020-07-28] MEDS: QUEtiapine FUMARATE 300 MG TABLET PO SCH ×2 (08:22→16:55)
[2020-07-28] MEDS: LORazepam 2 MG TABLET PO PRN (08:23)
[2020-07-28 08:27] VITALS: BP 123/69
[2020-07-28 17:00] VITALS: BP 125/88
[2020-07-29 00:34] VITALS: BP 131/88
[2020-07-29 08:13] VITALS: BP 109/79
[2020-07-29] MEDS: QUEtiapine FUMARATE 300 MG TABLET PO SCH ×2 (10:02→16:18)
[2020-07-29] MEDS: BusPIRone HCL 10 MG TABLET PO SCH ×2 (10:02→16:18)
[2020-07-29 16:03] VITALS: BP 137/88
[2020-07-29] MEDS ORDERED: QUET300T2 PO (16:45)
== END 2020-07-29 20:16 | disposition home or self-care (01) | DRG 750 ==
LOC: EMS 10:42 → B3A 16:23 → B2S 07-28 20:00
PROVIDERS: ADMIT Psychiatry & Neurology Psychiatry; ATTEND Psychiatry & Neurology Psychiatry
DX: F20.0 Paranoid schizophrenia (principal); F31.9 Bipolar disorder, unspecified; R45.851 Suicidal ideations; Z20.828 Contact with and (suspected) exposure to other viral communicable diseases; F17.210 Nicotine dependence, cigarettes, uncomplicated; G47.00 Insomnia, unspecified; K59.00 Constipation, unspecified; F41.9 Anxiety disorder, unspecified; F19.10 Other psychoactive substance abuse, uncomplicated; Z79.899 Other long term (current) drug therapy; Z88.2 Allergy status to sulfonamides; Z88.8 Allergy status to other drugs, medicaments and biological substances
CPT/HCPCS: 87081; 87426; 93005; G0480; G0481; 36415-L1; 36415-TC; 71045-TC; 80061-TC

== ENCOUNTER 2021-01-11 02:19 | Inpatient (IN) | payer MEDICAID, OTHER ==
[~2021-01-11] VITALS: Ht 165.1 cm; Wt 84.0 kg
[~2021-01-11 02:19] MED LIST changes: -QUET200T PO; +QUET300T2 PO
[2021-01-11 04:34] LABS: BASOPHILS % (AUTO) 0.3 % (0.0-2.0); EOSINOPHILS % (AUTO) 0 % (1.0-6.0); HEMATOCRIT 43.8 % (36-46); HEMOGLOBIN 14.5 g/dL (12.0-16.0); LYMPHOCYTES # (AUTO) 3.7 K/uL (1.0-4.8); LYMPHOCYTES % (AUTO) 23.2 % (22.0-44.0); MEAN CORPUSCULAR HEMOGLOBIN 28.9 pg (26.0-34.0); MEAN CORPUSCULAR HGB CONC 33.1 G/dL (31.0-37.0); MEAN CORPUSCULAR VOLUME 87 fL (80-100); MONOCYTES # (AUTO) 1.1 K/uL (0.1-1.0); MONOCYTES % (AUTO) 7.1 % (2.0-9.0); NEUTROPHILS % (AUTO) 69.4 % (40.0-70.0); PLATELET COUNT (AUTO) 327 K/uL (150-450); RED BLOOD CELL COUNT(AUTO) 5.01 MIL/uL (4.00-5.20); RED CELL DISTRIBUTION WIDTH 14.3 % (11.5-14.5)
[2021-01-11 04:46] LABS: COVID AG,FIA SOURCE NASOPHARYNGEAL
[2021-01-11 04:46] LABS: APPEARANCE,URINE CLEAR (CLEAR); BILIRUBIN,URINE NEGATIVE (NEGATIVE); GLUCOSE, URINE (UA) NEGATIVE (NEGATIVE); KETONES,URINE TRACE mg/dL (NEGATIVE); LEUKOCYTE ESTERASE ,URINE NEGATIVE (NEGATIVE); NITRATE,URINE NEGATIVE (NEGATIVE); OCCULT BLOOD,URINE TRACE (NEGATIVE); PROTEIN,URINE NEGATIVE (NEGATIVE); UROBILINOGEN,URINE 0.2 mg/dL (<=1.0)
[2021-01-11 04:50] LABS: AMPHET/METH SCREEN,URINE POSITIVE (NEGATIVE); BARBITURATE SCREEN, URINE NEGATIVE (NEGATIVE); BENZODIAZEPINES SCREEN,URINE POSITIVE (NEGATIVE); CANNABINOID SCREEN,URINE NEGATIVE (NEGATIVE); COCAINE SCREEN,URINE NEGATIVE (NEGATIVE); METHADONE SCREEN, URINE NEGATIVE (NEGATIVE); OPIATE SCREEN,URINE NEGATIVE (NEGATIVE)
[2021-01-11 04:51] LABS: ANION GAP 15 mmol/L (8-16); CALCIUM, TOTAL 9.3 mg/dL (8.8-10.5); CARBON DIOXIDE 26 mmol/L (22-29); CHLORIDE 107 mmol/L (98-107); CREATININE 0.98 mg/dL (0.60-1.30); GLOMERULAR FILTR. RATE CALC > 60 mL/min (>60); GLUCOSE,RANDOM 111 mg/dL (70-110); SODIUM SERUM 148 mmol/L (136-145); UREA NITROGEN, BLOOD 17 mg/dL (7-18)
[2021-01-11 04:55] LABS: PHENCYCLIDINE SCREEN,URINE NEGATIVE (NEGATIVE)
[2021-01-11 04:55] LABS: ALANINE AMINOTRANSFERASE 38 U/L (12-78); ALKALINE PHOSPHATASE 80 U/L (46-116); ASPARTATE AMINOTRANSFERASE 25 U/L (15-37); BILIRUBIN,TOTAL 0.7 mg/dL (0.1-1.0); HCG,QUANTITATIVE < 1 mIU/mL (0-6); SALICYLATE 0.3 mg/dL (2.8-20.0); TOTAL PROTEIN, SERUM 8.5 g/dL (6.4-8.2)
[2021-01-11 04:56] LABS: ACETAMINOPHEN < 2 mcg/mL (10-30)
[2021-01-11 04:59] LABS: BACTERIA,URINE Few /HPF (None Seen); SQUAMOUS EPITHELIAL CELL,UR Rare /LPF (None Seen); WBC,URINE 0-2 /HPF (0-5)
[2021-01-11] MEDS ORDERED: SODIUM CHLORIDE 0.9% 1,000 ML IV ONE (06:45)
[2021-01-11] MEDS ORDERED: LORazepam 2 MG/ML VIAL IVP ONE ×3 (06:45→09:00)
[2021-01-11 07:16] LABS: CREATINE KINASE, TOTAL ONLY 429 U/L (26-192)
[2021-01-11 07:24] LABS: INR 1.1 (0.9-1.1); PROTHROMBIN TIME 11.9 SEC (9.4-11.6)
[2021-01-11 07:26] LABS: LACTIC ACID 2.6 mmol/L (0.4-2.0)
[2021-01-11] MEDS ORDERED: SODIUM CHLORIDE 0.9% 1,400 ML IV ONE (07:30)
[2021-01-11] MEDS ORDERED: AZITHROMYCIN 500 MG/NS 250 ML IV ONE (09:00)
[2021-01-11] MEDS ORDERED: CefTRIAXone 1 GM/DEXTROSE 50 ML IV ONE (09:00)
[2021-01-11] MEDS ORDERED: 0.9% SODIUM CHLORIDE 10 ML SYRINGE IVP PRN (10:45)
[2021-01-11] MEDS ORDERED: ONDANSETRON HCL 4 MG/2 ML VIAL IVP PRN (11:00)
[2021-01-11] MEDS ORDERED: MAGNESIUM HYDROXIDE SUSPENSION 30 ML UDCUP PO PRN (11:00)
[2021-01-11] MEDS ORDERED: LORazepam 2 MG/ML VIAL IVP PRN (11:00)
[2021-01-11] MEDS ORDERED: ACETAMINOPHEN 325 MG TABLET PO PRN (11:00)
[2021-01-11] MEDS ORDERED: ZOLPIDEM TARTRATE 5 MG TABLET PO PRN (11:00)
[2021-01-11] MEDS ORDERED: HYDROCODONE/ACETAMINOPHEN 5-325 MG TABLET PO PRN (11:00)
[2021-01-11] MEDS ORDERED: BISACODYL 10 MG RECTAL RECTAL SUPPOSITORY PR PRN (11:00)
[2021-01-11] MEDS ORDERED: MORPHINE SULFATE 2 MG/ML SYRINGE IVP PRN (11:00)
[2021-01-11] MEDS ORDERED: MAGNESIUM SULFATE 2 GM, MVI, ADULT NO.1 WITH VIT K 10 ML, THIAMINE 100 MG, FOLIC ACID 1... IV ONE ×5 (11:15)
[2021-01-11] MEDS: HEPARIN SODIUM,PORCINE 5,000 UNITS/ML VIAL SQ SCH (15:20)
[2021-01-11 18:52] VITALS: BP 123/76
[2021-01-11 19:35] VITALS: BP 116/47
[2021-01-11] MEDS: DOCUSATE SODIUM 100 MG CAPSULE PO SCH (21:00)
[2021-01-11 23:39] VITALS: BP 130/53
[2021-01-12] MEDS: HEPARIN SODIUM,PORCINE 5,000 UNITS/ML VIAL SQ SCH ×3 (00:24→16:00)
[2021-01-12 05:00] VITALS: BP 103/69
[2021-01-12 07:09] LABS: BASOPHILS % (AUTO) 0.7 % (0.0-2.0); EOSINOPHILS % (AUTO) 1.2 % (1.0-6.0); HEMATOCRIT 35.2 % (36-46); HEMOGLOBIN 11.8 g/dL (12.0-16.0); LYMPHOCYTES # (AUTO) 3.9 K/uL (1.0-4.8); LYMPHOCYTES % (AUTO) 52.2 % (22.0-44.0); MEAN CORPUSCULAR HEMOGLOBIN 29.2 pg (26.0-34.0); MEAN CORPUSCULAR HGB CONC 33.6 G/dL (31.0-37.0); MEAN CORPUSCULAR VOLUME 87 fL (80-100); MONOCYTES # (AUTO) 0.5 K/uL (0.1-1.0); MONOCYTES % (AUTO) 7.1 % (2.0-9.0); NEUTROPHILS # (AUTO) 2.9 K/uL (1.8-7.7); NEUTROPHILS % (AUTO) 38.8 % (40.0-70.0); PLATELET COUNT (AUTO) 235 K/uL (150-450); RED BLOOD CELL COUNT(AUTO) 4.04 MIL/uL (4.00-5.20); RED CELL DISTRIBUTION WIDTH 13.9 % (11.5-14.5)
[2021-01-12 07:20] LABS: ALANINE AMINOTRANSFERASE 43 U/L (12-78); ALBUMIN 3.2 g/dL (3.4-5.0); ALKALINE PHOSPHATASE 59 U/L (46-116); ANION GAP 9 mmol/L (8-16); ASPARTATE AMINOTRANSFERASE 68 U/L (15-37); BILIRUBIN,TOTAL 0.9 mg/dL (0.1-1.0); CALCIUM, TOTAL 8.2 mg/dL (8.8-10.5); CARBON DIOXIDE 24 mmol/L (22-29); CHLORIDE 108 mmol/L (98-107); CREATININE 0.61 mg/dL (0.60-1.30); GLOMERULAR FILTR. RATE CALC > 60 mL/min (>60); GLUCOSE,RANDOM 89 mg/dL (70-110); POTASSIUM 3.2 mmol/L (3.5-5.1); SODIUM SERUM 141 mmol/L (136-145); TOTAL PROTEIN, SERUM 6.4 g/dL (6.4-8.2); UREA NITROGEN, BLOOD 7 mg/dL (7-18)
[2021-01-12 07:45] VITALS: BP 99/62
[2021-01-12] MEDS: PANTOPRAZOLE SODIUM 40 MG DR TABLET PO SCH (08:14)
[2021-01-12] MEDS: DOCUSATE SODIUM 100 MG CAPSULE PO SCH ×2 (08:16→21:00)
[2021-01-12 11:29] VITALS: BP 126/58
[2021-01-12] MEDS ORDERED: POTASSIUM CHLORIDE 20 MEQ ER TABLET PO ONE (14:30)
[2021-01-12 15:52] VITALS: BP 103/71
[2021-01-12 19:16] VITALS: BP 104/52
[2021-01-13] VITALS: BP 123/86
[2021-01-13 04:10] VITALS: BP 103/59
[2021-01-13 07:58] VITALS: BP 112/82
[2021-01-13] MEDS: HEPARIN SODIUM,PORCINE 5,000 UNITS/ML VIAL SQ SCH ×3 (08:00→16:00)
[2021-01-13] MEDS: PANTOPRAZOLE SODIUM 40 MG DR TABLET PO SCH (08:02)
[2021-01-13] MEDS: DOCUSATE SODIUM 100 MG CAPSULE PO SCH (08:03)
[2021-01-13 15:03] VITALS: BP 112/82
== END 2021-01-13 17:42 | DRG 52 ==
LOC: EMS 02:27 → 5S 17:26 → 6N 01-13 00:11
PROVIDERS: ADMIT Internal Medicine; ATTEND Internal Medicine
DX: G92 Toxic encephalopathy (principal); E87.0 Hyperosmolality and hypernatremia; E87.2 Acidosis; R65.10 Systemic inflammatory response syndrome (SIRS) of non-infectious origin without acute organ dysfunction; F20.2 Catatonic schizophrenia; F15.10 Other stimulant abuse, uncomplicated; F17.210 Nicotine dependence, cigarettes, uncomplicated; T43.595A Adverse effect of other antipsychotics and neuroleptics, initial encounter; F31.9 Bipolar disorder, unspecified; F10.10 Alcohol abuse, uncomplicated; Z20.822 Contact with and (suspected) exposure to COVID-19; Z88.2 Allergy status to sulfonamides; Y92.89 Other specified places as the place of occurrence of the external cause; Z88.8 Allergy status to other drugs, medicaments and biological substances; Z79.899 Other long term (current) drug therapy
CPT/HCPCS: 70450; 71045; 80053; 81001; 82550; 83605; 84702; 85025; 85610; 85730; 93005; 99291; G0480; G0481; J0456; J0696; J1644; J2060; J3411; J3475; J3490; J7030; 36415-L1; 36415-TC